=== PATIENT | female | born 1955 ===

== ENCOUNTER 2025-10-30 08:37 | Outpatient (CLI) | payer MEDICARE | END 2025-10-30 08:38 | disposition home or self-care (01) | LOC: SCSULT 08:37 | PROVIDERS: ATTEND Internal Medicine | DX: K59.09 Other constipation (principal); R74.8 Abnormal levels of other serum enzymes; R10.11 Right upper quadrant pain; K76.0 Fatty (change of) liver, not elsewhere classified; K80.20 Calculus of gallbladder without cholecystitis without obstruction | CPT/HCPCS: 76705 ==